=== PATIENT | female | born 1945 | race Two or more races ===

== ENCOUNTER → 2017-05-28 | Outpatient (CLI) | payer OTHER | END | disposition home or self-care (01) | LOC: TOM 14:30 | DX: R05 Cough (principal); R06.83 Snoring; J30.89 Other allergic rhinitis; G47.33 Obstructive sleep apnea (adult) (pediatric); E04.1 Nontoxic single thyroid nodule ==

== ENCOUNTER → 2017-11-03 14:55 | Outpatient (CLI) | payer OTHER | END | disposition home or self-care (01) | LOC: LAB 14:55 | DX: R42 Dizziness and giddiness (principal); Z51.81 Encounter for therapeutic drug level monitoring ==

== ENCOUNTER 2017-11-11 11:46 | Outpatient (CLI) | payer OTHER | END 2017-11-11 16:15 | disposition home or self-care (01) | LOC: MRI 11:46 | DX: R42 Dizziness and giddiness (principal); G47.33 Obstructive sleep apnea (adult) (pediatric) | CPT/HCPCS: 70553; A9579 ==

== ENCOUNTER 2019-08-04 14:30 | Outpatient (CLI) | payer OTHER | END 2019-08-04 15:04 | disposition home or self-care (01) | LOC: SONOGRAMA 14:30 | PROVIDERS: ATTEND Obstetrics & Gynecology | DX: N13.2 Hydronephrosis with renal and ureteral calculous obstruction (principal); N64.0 Fissure and fistula of nipple; N13.39 Other hydronephrosis; M80.80XA Other osteoporosis with current pathological fracture, unspecified site, initial encounter for fracture ==

== ENCOUNTER 2020-08-10 15:24 | Outpatient (CLI) | payer OTHER | END 2020-08-10 15:32 | disposition home or self-care (01) | LOC: RAD 15:24 | PROVIDERS: ATTEND Physical Medicine & Rehabilitation | DX: M17.0 Bilateral primary osteoarthritis of knee (principal) ==

== ENCOUNTER 2021-08-19 14:45 | Outpatient (CLI) | payer OTHER | END 2021-08-19 15:09 | disposition home or self-care (01) | LOC: RAD 14:45 | PROVIDERS: ATTEND Physical Medicine & Rehabilitation | DX: M17.12 Unilateral primary osteoarthritis, left knee (principal); M54.2 Cervicalgia; M54.50 Low back pain, unspecified ==

== ENCOUNTER 2022-06-17 13:20 | Outpatient (CLI) | payer OTHER | END 2022-06-17 13:25 | disposition home or self-care (01) | LOC: SONOGRAMA 13:20 | PROVIDERS: ATTEND Internal Medicine | DX: E04.2 Nontoxic multinodular goiter (principal) ==

== ENCOUNTER 2022-08-11 15:12 | Outpatient (CLI) | payer OTHER | END 2022-08-11 15:14 | disposition home or self-care (01) | LOC: RAD 15:12 | PROVIDERS: ATTEND Physical Medicine & Rehabilitation | DX: M54.16 Radiculopathy, lumbar region (principal) ==

== ENCOUNTER 2024-04-19 14:23 | Outpatient (CLI) | payer OTHER | END 2024-04-19 14:25 | disposition home or self-care (01) | LOC: SONOGRAMA 14:23 | DX: E04.2 Nontoxic multinodular goiter (principal) ==

== ENCOUNTER 2024-07-26 13:07 | Outpatient (CLI) | payer OTHER | END 2024-07-26 13:18 | disposition home or self-care (01) | LOC: MRI 13:07 | PROVIDERS: ATTEND Physical Medicine & Rehabilitation | DX: M54.50 Low back pain, unspecified (principal); M48.061 Spinal stenosis, lumbar region without neurogenic claudication | CPT/HCPCS: 72148 ==

== ENCOUNTER 2024-10-06 13:10 | Outpatient (CLI) | payer OTHER | END 2024-10-06 13:11 | disposition home or self-care (01) | LOC: NUCLEAR 13:10 | PROVIDERS: ATTEND Psychiatry & Neurology Clinical Neurophysiology | DX: G31.84 Mild cognitive impairment of uncertain or unknown etiology (principal) | CPT/HCPCS: 78803; A9557 ==